=== PATIENT | female | born 1955 | race Caucasian/White ===

== ENCOUNTER 2017-03-23 19:18 | Observation (INO) ==
[2017-03-23 20:33] LABS: Bilirubin,Urine Negative (Negative); Blood,Urine Negative (Negative); Clarity,Urine Clear (Clear); Color,Urine Yellow (Yellow); Glucose,Urine (UA) >=1000 mg/dL (Normal); Ketones,Urine 80 mg/dL (Negative); Leukocyte Esterase,Urine Negative (Negative); Nitrite,Urine Positive (Negative); Protein,Urine Negative (Neg-Trace); Specific Gravity,Urine > 1.030 (1.010-1.025); Urobilinogen,Urine Normal (Normal)
[2017-03-23 20:34] LABS: Bacteria,Urine Many per hpf (None-Few); Hyaline Casts,Urine None Seen per lpf (None-Few); RBC,Urine 0-3 per hpf (0-3); Squamous Epithelial Cell,Urine Few per lpf (None-Few); WBC,Urine 15-30 per hpf (0-3)
--- NOTE | 2017-03-23 21:02 | Emergency Department Note ---
START Narrative - START START: I examined this patient and my medical decision-making was reviewed with the [employer] TECHNICIAN/PA/Advanced Practice Nurse/Resident Physician. I agree with the documented findings, disposition and treatment plan as described except to the extent set forth below. The patient presents with abdominal pain was gone for several months and is intermittent and mid abdomen without radiation and the pain is now worse. She is here with her [id number]. The patient was prescribed metformin today for a diagnosis of new onset diabetes and the prescription is at the pharmacy but she has not yet started taking the medication. Labs are ordered as well as a CT scan. Results pending. [id number]
[2017-03-23 21:03] LABS: Basophils # 0.1 K/mcL (0.0-0.2); Basophils % 0.4 %; Eosinophils % 0.3 %; Hematocrit 48.8 % (35.3-44.9); Hemoglobin 16.7 g/dL (11.5-15.4); Immature Granulocytes % 0.3 % (0-4); Immature Platelets 11.1 % (1.1-6.1); Lymphocytes # 1.7 K/mcL (0.6-4.6); Lymphocytes % 14.8 %; Mean Corpuscular HGB Conc 34.2 g/dL (31.6-35.5); Mean Corpuscular Hemoglobin 29.3 pg (28.0-33.3); Mean Corpuscular Volume 85.6 fL (83.0-100.0); Monocytes # 0.7 K/mcL (0.0-1.3); Monocytes % 5.9 %; Neutrophils # 8.8 K/mcL (1.6-8.9); Platelet Count 309 K/mcL (140-400); Red Cell Distribution Width 12.4 % (11.5-14.5); Segmented Neutrophils % 78.3 %
[2017-03-23 21:18] LABS: Alanine Aminotransferase 23 Units/L (0-55); Albumin 4.2 g/dL (3.5-5.0); Albumin/Globulin Ratio 1.1 (1.1-2.2); Alkaline Phosphatase 132 Units/L (38-126); Aspartate Amino Transferase 20 Units/L (5-34); BUN/Creatinine Ratio 9 (6-26); Bilirubin,Direct 0.2 mg/dL (0.0-0.5); Bilirubin,Indirect 0.6 mg/dL (0.0-1.2); Bilirubin,Total 0.8 mg/dL (0.2-1.2); Blood Urea Nitrogen 9 mg/dL (7-20); Calcium 10.2 mg/dL (8.6-10.8); Carbon Dioxide 25 mEq/L (19-29); Chloride 93 mEq/L (98-109); Globulin 3.7 g/dL (2.4-3.5); Glucose 447 mg/dL (70-99); Lipase 10 Units/L (8-78); Osmolality,Calculated 298 (280-300); Potassium 3.7 mEq/L (3.5-4.5); Sodium 135 mEq/L (136-145); Total Protein 7.9 g/dL (6.0-8.3); eGFR For African Americans > 60 (> 60); eGFR For Non-African Americans 53 (> 60)
[2017-03-23] MEDS ORDERED: 0.9 % Sodium Chloride 1,000 ML IVC ONE ×2 (21:21→22:10)
--- NOTE | 2017-03-23 21:57 | Emergency Department Note ---
Disposition Clinical Impression: Abnormal EKG, Cystitis Abdominal pain Qualifiers: Abdominal location: lower abdomen, unspecified Qualified Code(s): R10.30 - Lower abdominal pain, unspecified Hyperglycemia due to type 2 diabetes mellitus Qualifiers: Diabetes mellitus [facility] insulin use: without [facility] use Qualified Code(s ): E11.65 - Type 2 diabetes mellitus with hyperglycemia Disposition: Admitted As Inpatient Condition: Good Time of Disposition: 23:44 Abdominal Pain HPI - General Chief Complaint: ED Abdominal Pain Stated Complaint: abd pain Time Seen by Provider: 03/23/17 20:40 Source: patient Mode of arrival: ambulatory Limitations: no limitations Nursing Notes Reviewed: Yes Vital Signs Reviewed: Yes - History of Present Illness HPI Narrative: 61-year-old female presents to the ED with one-week history of suprapubic/ periumbilical abdominal pain. Pain is described as sharp and moderate in severity. Pain is non-migratory and non-radiating. No known provoking or palliative factors; has not taken anything specifically for this pain. No care sought for this specific pain prior to current ED visit. Patient does have some associated dysuria and malodorous urine. Denies flank pain, fevers, chills , nausea, vomiting, diarrhea, or hematuria. Patient's daughter present in exam room and states patient is at baseline mentation. Patient mentions she saw her PCP this afternoon and was given rx for metformin for new diagnosis of diabetes. Patient has not taken any metformin as of yet. ROS: not having any headache, chest pain, palpitations, SOA, post-prandial pain , or leg edema. Pain Scale: 9 - Related Data Home Medications Medication Instructions Recorded Confirmed ALPRAZolam [Xanax 1 MG Tablet] 1 - 2 mg PO BID PRN 03/31/16 03/31/16 Baclofen [Lioresal] 10 mg PO BID 03/31/16 03/31/16 Diclofenac Sodium [Voltaren] 1 appl TP QID PRN 03/31/16 03/31/16 Etodolac 300 mg PO Q12H 03/31/16 03/31/16 Furosemide [Lasix] 40 mg PO DAILY 03/31/16 03/31/16 Losartan Potassium [Cozaar] 50 mg PO DAILY 03/31/16 03/31/16 Meloxicam [Mobic] 15 mg PO DAILY 03/31/16 03/31/16 Nystatin POWDER [Nystop] 1 appl TP 2-3XD 03/31/16 03/31/16 Omeprazole [PriLOSEC] 20 mg PO DAILY 03/31/16 03/31/16 Promethazine [Phenergan] 25 mg PO Q6HR PRN 03/31/16 03/31/16 hydroCHLOROthiazide 25 mg PO DAILY 03/31/16 03/31/16 [Hydrochlorothiazide] Alogliptin Benzoate [Nesina] 25 mg PO DAILY 03/23/17 03/23/17 Ammonium Lactate [Tracy-Hydrolac] 1 appl TP BID 03/23/17 03/23/17 Loratadine [Claritin] 10 mg PO DAILY 03/23/17 03/23/17 Metformin HCl [Metformin HCl ER] 500 mg PO QPM 03/23/17 03/23/17 Mometasone Furoate [Elocon] 1 appl TP DAILY 03/23/17 03/23/17 Oxycodone HCl/Acetaminophen 1 each PO Q6H PRN 03/23/17 03/23/17 [Percocet 5-325 mg Tablet] Simvastatin [Zocor] 40 mg PO HS 03/23/17 03/23/17 Allergies Allergy/AdvReac Type Severity Reaction Status Date / Time No Known Allergies Allergy Verified 03/31/16 09:44 Review of Systems: As Per HPI Eyes: Denies: vision change ENT ED: Denies: dysphagia Cardiovascular: Denies: syncope Gastrointestinal: Denies: melena, hematochezia Genitourinary: Denies: discharge Neurological: Denies: weakness, numbness, paresthesias, confusion, vertigo Endocrine: Denies: fatigue Abdominal Pain PMH - Past Medical History Medical history: Reports: diabetes, other (New diagnosis of diabetes) Female Surgical History: Reports: orthopedic, other Psychiatric history: Reports: no psych history - Social History Smoking status: Never smoker Alcohol use: Reports: none Drug use: Reports: none Physical Exam - General Limitations: no limitations General appearance: alert, in no apparent distress - Head Head exam: normocephalic - Eye Eye exam: Present: PERRL, EOMI. Absent: scleral icterus, conjunctival injection - ENT ENT exam: mucous membranes moist - Respiratory Respiratory exam: Present: normal lung sounds bilaterally. Absent: wheezes - Cardiovascular Cardiovascular exam: Present: regular rate. Absent: systolic murmur, diastolic murmur, +S3, +S4 - Abdominal Exam Abdominal exam: Present: tenderness (suprapubic/periumbilical). Absent: distention, guarding, rebound, rigidity - Extremities Exam Extremities exam: Absent: pedal edema - Neurological Exam Neurological exam: Present: alert, oriented X3 - Psychiatric Psychiatric exam: Present: normal affect - Skin Skin exam: Present: warm, dry, intact. Absent: cyanosis, diaphoresis, pallor Course Course Narrative: Ordered CBC, CMP, Troponin, VBG, UA, EKG, and CT Abd/Pelv. EKG showed ST segment depressions in leads V3-V6 that were new compared to previous EKG. Initial troponin negative. UA positive for UTI. Given IV Rocephin 1g. NS Bolus 1000mL x2 given. 40meQ KCl PO given for borderline K+. Glucose elevated at 447. AG = 19. VBG negative for acidosis. Vital Signs Temperature 98.1 F 03/23/17 19:44 Pulse Rate 115 03/23/17 19:44 Respiratory Rate 18 03/23/17 19:44 Blood Pressure 143/87 03/23/17 19:44 O2 Sat by Pulse Oximetry 98 03/23/17 19:44 Temperature 98.1 F 03/23/17 19:44 Pulse Rate 71 03/23/17 23:17 Respiratory Rate 16 03/23/17 23:17 Blood Pressure 129/89 03/23/17 23:17 O2 Sat by Pulse Oximetry 95 03/23/17 23:17 Oxygen Delivery Oxygen Delivery Room Air Abdominal Pain - MDM Narrative Medical decision making narrative: Patient is a newly diagnosed diabetic with elevated glucose and an anion gap. Patient also has a UTI as well as concerning EKG findings. I feel that patient would benefit from admission for ACS rule out as well as continued hydration and glucose monitoring. Discussed patient with hospitalist (Dr. Coon) at 2310; accepts patient admission for treatment of UTI and r/o ACS. - Lab Data Lab results reviewed: Yes I reviewed the patient's lab results. Lab results narrative: Laboratory Last Values WBC 11.2 K/mcL (4.3-11.1) H 03/23/17 20:55 RBC 5.70 M/mcL (3.82-4.97) H 03/23/17 20:55 Hgb 16.7 g/dL (11.5-15.4) H 03/23/17 20:55 Hct 48.8 % (35.3-44.9) H 03/23/17 20:55 MCV 85.6 fL (83.0-100.0) 03/23/17 20:55 MCH 29.3 pg (28.0-33.3) 03/23/17 20:55 MCHC 34.2 g/dL (31.6-35.5) 03/23/17 20:55 RDW 12.4 % (11.5-14.5) 03/23/17 20:55 Plt Count 309 K/mcL (140-400) 03/23/17 20:55 MPV 12.0 fL (9.4-12.4) 03/23/17 20:55 Immature Gran % 0.3 % (0-4) 03/23/17 20:55 Seg Neutrophils % 78.3 % 03/23/17 20:55 Lymphocytes % 14.8 % 03/23/17 20:55 Monocytes % 5.9 % 03/23/17 20:55 Eosinophils % 0.3 % 03/23/17 20:55 Basophils % 0.4 % 03/23/17 20:55 Neutrophils # 8.8 K/mcL (1.6-8.9) 03/23/17 20:55 Lymphocytes # 1.7 K/mcL (0.6-4.6) 03/23/17 20:55 Monocytes # 0.7 K/mcL (0.0-1.3) 03/23/17 20:55 Eosinophils # 0.0 K/mcL (0.0-0.6) 03/23/17 20:55 Basophils # 0.1 K/mcL (0.0-0.2) 03/23/17 20:55 Immature Plt Fraction 11.1 % (1.1-6.1) H 03/23/17 20:55 Sodium 135 mEq/L (136-145) L 03/23/17 20:55 Potassium 3.7 mEq/L (3.5-4.5) 03/23/17 20:55 Chloride 93 mEq/L (98-109) L 03/23/17 20:55 Carbon Dioxide 25 mEq/L (19-29) 03/23/17 20:55 BUN 9 mg/dL (7-20) 03/23/17 20:55 Creatinine 1.05 mg/dL (0.57-1.11) 03/23/17 20:55 Est GFR ( Amer) > 60 (> 60) 03/23/17 20:55 Est GFR (Non-Af Amer) 53 (> 60) L 03/23/17 20:55 BUN/Creatinine Ratio 9 (6-26) 03/23/17 20:55 Glucose 447 mg/dL (70-99) H 03/23/17 20:55 Calculated Osmolality 298 (280-300) 03/23/17 20:55 Calcium 10.2 mg/dL (8.6-10.8) 03/23/17 20:55 Total Bilirubin 0.8 mg/dL (0.2-1.2) 03/23/17 20:55 Direct Bilirubin 0.2 mg/dL (0.0-0.5) 03/23/17 20:55 Indirect Bilirubin 0.6 mg/dL (0.0-1.2) 03/23/17 20:55 AST 20 Units/L (5-34) 03/23/17 20:55 ALT 23 Units/L (0-55) 03/23/17 20:55 Alkaline Phosphatase 132 Units/L (38-126) H 03/23/17 20:55 Troponin I 0.00 ng/mL (0-0.03) 03/23/17 20:55 Serum Total Protein 7.9 g/dL (6.0-8.3) 03/23/17 20:55 Albumin 4.2 g/dL (3.5-5.0) 03/23/17 20:55 Globulin 3.7 g/dL (2.4-3.5) H 03/23/17 20:55 Albumin/Globulin Ratio 1.1 (1.1-2.2) 03/23/17 20: Lipase 10 Units/L (8-78) 03/23/17 20:55 Urine Color Yellow (Yellow) 03/23/17 20:10 Urine Clarity Clear (Clear) 03/23/17 20:10 Urine pH 6.0 pH Units (5.0-8.0) 03/23/17 20:10 Ur Specific [place] > 1.030 (1.010-1.025) H 03/23/17 20:10 Urine Protein Negative mg/dL (Neg-Trace) 03/23/17 20:10 Urine Glucose (UA) >=1000 mg/dL (Normal) H 03/23/17 20:10 Urine Ketones 80 mg/dL (Negative) H 03/23/17 20:10 Urine Blood Negative (Negative) 03/23/17 20:10 Urine Nitrite Positive (Negative) A 03/23/17 20:10 Urine Bilirubin Negative (Negative) 03/23/17 20:10 Urine Urobilinogen Normal mg/dL (Normal) 03/23/17 20:10 Ur Leukocyte Esterase Negative (Negative) 03/23/17 20:10 Urine Microscopic RBC 0-3 per hpf (0-3) 03/23/17 20:10 Urine Microscopic WBC 15-30 per hpf (0-3) H 03/23/17 20:10 Ur Squamous Epith Cells Few per lpf (None-Few) 03/23/17 20:10 Urine Bacteria Many per hpf (None-Few) H 03/23/17 20:10 Hyaline Casts None Seen per lpf (None-Few) 03/23/17 20:10 Ur Culture Indicated? YES (NO) A 03/23/17 20:10 Laboratory Last Values WBC 11.2 K/mcL (4.3-11.1) H 03/23/17 20:55 RBC 5.70 M/mcL (3.82-4.97) H 03/23/17 20:55 Hgb 16.7 g/dL (11.5-15.4) H 03/23/17 20:55 Hct 48.8 % (35.3-44.9) H 03/23/17 20:55 MCV 85.6 fL (83.0-100.0) 03/23/17 20:55 MCH 29.3 pg (28.0-33.3) 03/23/17 20:55 MCHC 34.2 g/dL (31.6-35.5) 03/23/17 20:55 RDW 12.4 % (11.5-14.5) 03/23/17 20:55 Plt Count 309 K/mcL (140-400) 03/23/17 20:55 MPV 12.0 fL (9.4-12.4) 03/23/17 20:55 Immature Gran % 0.3 % (0-4) 03/23/17 20:55 Seg Neutrophils % 78.3 % 03/23/17 20:55 Lymphocytes % 14.8 % 03/23/17 20:55 Monocytes % 5.9 % 03/23/17 20:55 Eosinophils % 0.3 % 03/23/17 20:55 Basophils % 0.4 % 03/23/17 20:55 Neutrophils # 8.8 K/mcL (1.6-8.9) 03/23/17 20:55 Lymphocytes # 1.7 K/mcL (0.6-4.6) 03/23/17 20:55 Monocytes # 0.7 K/mcL (0.0-1.3) 03/23/17 20:55 Eosinophils # 0.0 K/mcL (0.0-0.6) 03/23/17 20:55 Basophils # 0.1 K/mcL (0.0-0.2) 03/23/17 20:55 Immature Plt Fraction 11.1 % (1.1-6.1) H 03/23/17 20:55 VBG pH 7.43 pH Units (7.32-7.42) H 03/23/17 22:35 VBG pCO2 48 mmHg (41-51) 03/23/17 22:35 VBG pO2 40 mmHg (25-50) 03/23/17 22:35 VBG HCO3 32 mEq/L (21-27) H 03/23/17 22:35 Sodium 135 mEq/L (136-145) L 03/23/17 20:55 Potassium 3.7 mEq/L (3.5-4.5) 03/23/17 20:55 Chloride 93 mEq/L (98-109) L 03/23/17 20:55 Carbon Dioxide 25 mEq/L (19-29) 03/23/17 20:55 BUN 9 mg/dL (7-20) 03/23/17 20:55 Creatinine 1.05 mg/dL (0.57-1.11) 03/23/17 20:55 Est GFR ( Amer) > 60 (> 60) 03/23/17 20:55 Est GFR (Non-Af Amer) 53 (> 60) L 03/23/17 20:55 BUN/Creatinine Ratio 9 (6-26) 03/23/17 20:55 Glucose 447 mg/dL (70-99) H 03/23/17 20:55 Calculated Osmolality 298 (280-300) 03/23/17 20:55 Lactic Acid 1.5 mmol/L (0.5-2.2) 03/23/17 22:21 Calcium 10.2 mg/dL (8.6-10.8) 03/23/17 20:55 Total Bilirubin 0.8 mg/dL (0.2-1.2) 03/23/17 20:55 Direct Bilirubin 0.2 mg/dL (0.0-0.5) 03/23/17 20: Indirect Bilirubin 0.6 mg/dL (0.0-1.2) 03/23/17 20:55 AST 20 Units/L (5-34) 03/23/17 20:55 ALT 23 Units/L (0-55) 03/23/17 20:55 Alkaline Phosphatase 132 Units/L (38-126) H 03/23/17 20:55 Troponin I 0.00 ng/mL (0-0.03) 03/23/17 20:55 Serum Total Protein 7.9 g/dL (6.0-8.3) 03/23/17 20:55 Albumin 4.2 g/dL (3.5-5.0) 03/23/17 20:55 Globulin 3.7 g/dL (2.4-3.5) H 03/23/17 20:55 Albumin/Globulin Ratio 1.1 (1.1-2.2) 03/23/17 20: Lipase 10 Units/L (8-78) 03/23/17 20:55 Urine Color Yellow (Yellow) 03/23/17 20:10 Urine Clarity Clear (Clear) 03/23/17 20:10 Urine pH 6.0 pH Units (5.0-8.0) 03/23/17 20:10 Ur Specific [place] > 1.030 (1.010-1.025) H 03/23/17 20:10 Urine Protein Negative mg/dL (Neg-Trace) 03/23/17 20:10 Urine Glucose (UA) >=1000 mg/dL (Normal) H 03/23/17 20:10 Urine Ketones 80 mg/dL (Negative) H 03/23/17 20:10 Urine Blood Negative (Negative) 03/23/17 20:10 Urine Nitrite Positive (Negative) A 03/23/17 20:10 Urine Bilirubin Negative (Negative) 03/23/17 20:10 Urine Urobilinogen Normal mg/dL (Normal) 03/23/17 20:10 Ur Leukocyte Esterase Negative (Negative) 03/23/17 20:10 Urine Microscopic RBC 0-3 per hpf (0-3) 03/23/17 20:10 Urine Microscopic WBC 15-30 per hpf (0-3) H 03/23/17 20:10 Ur Squamous Epith Cells Few per lpf (None-Few) 03/23/17 20:10 Urine Bacteria Many per hpf (None-Few) H 03/23/17 20:10 Hyaline Casts None Seen per lpf (None-Few) 03/23/17 20:10 Ur Culture Indicated? YES (NO) A 03/23/17 20:10 Laboratory Last Values WBC 11.2 K/mcL (4.3-11.1) H 03/23/17 20:55 RBC 5.70 M/mcL (3.82-4.97) H 03/23/17 20:55 Hgb 16.7 g/dL (11.5-15.4) H 03/23/17 20:55 Hct 48.8 % (35.3-44.9) H 03/23/17 20:55 MCV 85.6 fL (83.0-100.0) 03/23/17 20:55 MCH 29.3 pg (28.0-33.3) 03/23/17 20:55 MCHC 34.2 g/dL (31.6-35.5) 03/23/17 20:55 RDW 12.4 % (11.5-14.5) 03/23/17 20:55 Plt Count 309 K/mcL (140-400) 03/23/17 20:55 MPV 12.0 fL (9.4-12.4) 03/23/17 20:55 Immature Gran % 0.3 % (0-4) 03/23/17 20:55 Seg Neutrophils % 78.3 % 03/23/17 20:55 Lymphocytes % 14.8 % 03/23/17 20:55 Monocytes % 5.9 % 03/23/17 20:55 Eosinophils % 0.3 % 03/23/17 20:55 Basophils % 0.4 % 03/23/17 20:55 Neutrophils # 8.8 K/mcL (1.6-8.9) 03/23/17 20:55 Lymphocytes # 1.7 K/mcL (0.6-4.6) 03/23/17 20:55 Monocytes # 0.7 K/mcL (0.0-1.3) 03/23/17 20:55 Eosinophils # 0.0 K/mcL (0.0-0.6) 03/23/17 20:55 Basophils # 0.1 K/mcL (0.0-0.2) 03/23/17 20:55 Immature Plt Fraction 11.1 % (1.1-6.1) H 03/23/17 20:55 VBG pH 7.43 pH Units (7.32-7.42) H 03/23/17 22:35 VBG pCO2 48 mmHg (41-51) 03/23/17 22:35 VBG pO2 40 mmHg (25-50) 03/23/17 22:35 VBG HCO3 32 mEq/L (21-27) H 03/23/17 22:35 Sodium 135 mEq/L (136-145) L 03/23/17 20:55 Potassium 3.7 mEq/L (3.5-4.5) 03/23/17 20:55 Chloride 93 mEq/L (98-109) L 03/23/17 20:55 Carbon Dioxide 25 mEq/L (19-29) 03/23/17 20:55 BUN 9 mg/dL (7-20) 03/23/17 20:55 Creatinine 1.05 mg/dL (0.57-1.11) 03/23/17 20:55 Est GFR ( Amer) > 60 (> 60) 03/23/17 20:55 Est GFR (Non-Af Amer) 53 (> 60) L 03/23/17 20:55 BUN/Creatinine Ratio 9 (6-26) 03/23/17 20:55 Glucose 447 mg/dL (70-99) H 03/23/17 20:55 Calculated Osmolality 298 (280-300) 03/23/17 20:55 Lactic Acid 1.5 mmol/L (0.5-2.2) 03/23/17 22:21 Calcium 10.2 mg/dL (8.6-10.8) 03/23/17 20:55 Total Bilirubin 0.8 mg/dL (0.2-1.2) 03/23/17 20:55 Direct Bilirubin 0.2 mg/dL (0.0-0.5) 03/23/17 20:55 Indirect Bilirubin 0.6 mg/dL (0.0-1.2) 03/23/17 20:55 AST 20 Units/L (5-34) 03/23/17 20:55 ALT 23 Units/L (0-55) 03/23/17 20:55 Alkaline Phosphatase 132 Units/L (38-126) H 03/23/17 20:55 Troponin I 0.00 ng/mL (0-0.03) 03/23/17 20:55 Serum Total Protein 7.9 g/dL (6.0-8.3) 03/23/17 20:55 Albumin 4.2 g/dL (3.5-5.0) 03/23/17 20:55 Globulin 3.7 g/dL (2.4-3.5) H 03/23/17 20:55 Albumin/Globulin Ratio 1.1 (1.1-2.2) 03/23/17 20:55 Lipase 10 Units/L (8-78) 03/23/17 20:55 Urine Color Yellow (Yellow) 03/23/17 20:10 Urine Clarity Clear (Clear) 03/23/17 20:10 Urine pH 6.0 pH Units (5.0-8.0) 03/23/17 20:10 Ur Specific [place] > 1.030 (1.010-1.025) H 03/23/17 20:10 Urine Protein Negative mg/dL (Neg-Trace) 03/23/17 20:10 Urine Glucose (UA) >=1000 mg/dL (Normal) H 03/23/17 20:10 Urine Ketones 80 mg/dL (Negative) H 03/23/17 20:10 Urine Blood Negative (Negative) 03/23/17 20:10 Urine Nitrite Positive (Negative) A 03/23/17 20:10 Urine Bilirubin Negative (Negative) 03/23/17 20:10 Urine Urobilinogen Normal mg/dL (Normal) 03/23/17 20:10 Ur Leukocyte Esterase Negative (Negative) 03/23/17 20:10 Urine Microscopic RBC 0-3 per hpf (0-3) 03/23/17 20:10 Urine Microscopic WBC 15-30 per hpf (0-3) H 03/23/17 20:10 Ur Squamous Epith Cells Few per lpf (None-Few) 03/23/17 20:10 Urine Bacteria Many per hpf (None-Few) H 03/23/17 20:10 Hyaline Casts None Seen per lpf (None-Few) 03/23/17 20:10 Ur Culture Indicated? YES (NO) A 03/23/17 20:10 Result diagrams: 03/23/17 20:55 03/23/17 20:55 Lab Results 03/23/17 03/23/17 03/23/17 Range/Units 20:10 20:55 20:55 WBC 11.2 H (4.3-11.1) K/mcL RBC 5.70 H (3.82-4.97) M/mcL Hgb 16.7 H (11.5-15.4) g/dL Hct 48.8 H (35.3-44.9) % MCV 85.6 (83.0-100.0) fL MCH 29.3 (28.0-33.3) pg MCHC 34.2 (31.6-35.5) g/dL RDW 12.4 (11.5-14.5) % Plt Count 309 (140-400) K/mcL MPV 12.0 (9.4-12.4) fL Immature Gran % 0.3 (0-4) % Seg Neutrophils % 78.3 % Lymphocytes % 14.8 % Monocytes % 5.9 % Eosinophils % 0.3 % Basophils % 0.4 % Neutrophils # 8.8 (1.6-8.9) K/mcL Lymphocytes # 1.7 (0.6-4.6) K/mcL Monocytes # 0.7 (0.0-1.3) K/mcL Eosinophils # 0.0 (0.0-0.6) K/mcL Basophils # 0.1 (0.0-0.2) K/mcL Immature Plt Fraction 11.1 H (1.1-6.1) % VBG pH (7.32-7.42) pH Units VBG pCO2 (41-51) mmHg VBG pO2 (25-50) mmHg VBG HCO3 (21-27) mEq/L Sodium 135 L (136-145) mEq/L Potassium 3.7 (3.5-4.5) mEq/L Chloride 93 L (98-109) mEq/L Carbon Dioxide 25 (19-29) mEq/L BUN 9 (7-20) mg/dL Creatinine 1.05 (0.57-1.11) mg/dL Est GFR ( Amer) > 60 (> 60) Est GFR (Non-Af Amer) 53 L (> 60) BUN/Creatinine Ratio 9 (6-26) Glucose 447 H (70-99) mg/dL Calculated Osmolality 298 (280-300) Lactic Acid (0.5-2.2) mmol/L Calcium 10.2 (8.6-10.8) mg/dL Total Bilirubin 0.8 (0.2-1.2) mg/dL Direct Bilirubin 0.2 (0.0-0.5) mg/dL Indirect Bilirubin 0.6 (0.0-1.2) mg/dL AST 20 (5-34) Units/L ALT 23 (0-55) Units/L Alkaline Phosphatase 132 H (38-126) Units/L Troponin I (0-0.03) ng/mL Serum Total Protein 7.9 (6.0-8.3) g/dL Albumin 4.2 (3.5-5.0) g/dL Globulin 3.7 H (2.4-3.5) g/dL Albumin/Globulin Ratio 1.1 (1.1-2.2) Lipase 10 (8-78) Units/L Urine Color Yellow (Yellow) Urine Clarity Clear (Clear) Urine pH 6.0 (5.0-8.0) pH Units Ur Specific [place] > 1.030 H (1.010-1.025) Urine Protein Negative (Neg-Trace) mg/dL Urine Glucose (UA) >=1000 H (Normal) mg/dL Urine Ketones 80 H (Negative) mg/dL Urine Blood Negative (Negative) Urine Nitrite Positive A (Negative) Urine Bilirubin Negative (Negative) Urine Urobilinogen Normal (Normal) mg/dL Ur Leukocyte Esterase Negative (Negative) Urine Microscopic RBC 0-3 (0-3) per hpf Urine Microscopic WBC 15-30 H (0-3) per hpf Ur Squamous Epith Cells Few (None-Few) per lpf Urine Bacteria Many H (None-Few) per hpf Hyaline Casts None Seen (None-Few) per lpf Ur Culture Indicated? YES A (NO) 03/23/17 03/23/17 03/23/17 Range/Units 20:55 22:21 22:35 WBC (4.3-11.1) K/mcL RBC (3.82-4.97) M/mcL Hgb (11.5-15.4) g/dL Hct (35.3-44.9) % MCV (83.0-100.0) fL MCH (28.0-33.3) pg MCHC (31.6-35.5) g/dL RDW (11.5-14.5) % Plt Count (140-400) K/mcL MPV (9.4-12.4) fL Immature Gran % (0-4) % Seg Neutrophils % % Lymphocytes % % Monocytes % % Eosinophils % % Basophils % % Neutrophils # (1.6-8.9) K/mcL Lymphocytes # (0.6-4.6) K/mcL Monocytes # (0.0-1.3) K/mcL Eosinophils # (0.0-0.6) K/mcL Basophils # (0.0-0.2) K/mcL Immature Plt Fraction (1.1-6.1) % VBG pH 7.43 H (7.32-7.42) pH Units VBG pCO2 48 (41-51) mmHg VBG pO2 40 (25-50) mmHg VBG HCO3 32 H (21-27) mEq/L Sodium (136-145) mEq/L Potassium (3.5-4.5) mEq/L Chloride (98-109) mEq/L Carbon Dioxide (19-29) mEq/L BUN (7-20) mg/dL Creatinine (0.57-1.11) mg/dL Est GFR ( Amer) (> 60) Est GFR (Non-Af Amer) (> 60) BUN/Creatinine Ratio (6-26) Glucose (70-99) mg/dL Calculated Osmolality (280-300) Lactic Acid 1.5 (0.5-2.2) mmol/L Calcium (8.6-10.8) mg/dL Total Bilirubin (0.2-1.2) mg/dL Direct Bilirubin (0.0-0.5) mg/dL Indirect Bilirubin (0.0-1.2) mg/dL AST (5-34) Units/L ALT (0-55) Units/L Alkaline Phosphatase (38-126) Units/L Troponin I 0.00 (0-0.03) ng/mL Serum Total Protein (6.0-8.3) g/dL Albumin (3.5-5.0) g/dL Globulin (2.4-3.5) g/dL Albumin/Globulin Ratio (1.1-2.2) Lipase (8-78) Units/L Urine Color (Yellow) Urine Clarity (Clear) Urine pH (5.0-8.0) pH Units Ur Specific [place] (1.010-1.025) Urine Protein (Neg-Trace) mg/dL Urine Glucose (UA) (Normal) mg/dL Urine Ketones (Negative) mg/dL Urine Blood (Negative) Urine Nitrite (Negative) Urine Bilirubin (Negative) Urine Urobilinogen (Normal) mg/dL Ur Leukocyte Esterase (Negative) Urine Microscopic RBC (0-3) per hpf Urine Microscopic WBC (0-3) per hpf Ur Squamous Epith Cells (None-Few) per lpf Urine Bacteria (None-Few) per hpf Hyaline Casts (None-Few) per lpf Ur Culture Indicated? (NO) - Radiology Data Radiology results reviewed: Yes I reviewed the patient's radiology results. Abdomen/Pelvis CT 03/23/17 21:01 IMPRESSION: Imaging findings concerning for an enteritis with associated ileus versus early small bowel obstruction. Diverticulosis coli without diverticulitis. Left lower lobe pulmonary micronodule. Grade I/II spondylolisthesis of L3 on L4 secondary to bilateral spondylolysis. RECOMMENDATIONS: Fleischner Society guidelines for follow-up and management of pulmonary nodules: Nodule size less than or equal to 4 mm In a low-risk patient, no follow-up needed. In a high-risk patient, follow-up CT at 12 months; if unchanged, no further follow-up. Low risk patients include individuals with minimal or absent history of smoking and other known risk factors. High risk patients include individuals with a history of smoking or other known risk factors. Radiology 2005; [id number] D/ / Davion Gaming MD / Davion Gaming MD Interpreting Provider: Davion Gaming MD - EKG Data EKG attestation: Yes I reviewed and interpreted this EKG. EKG shows normal: sinus rhythm, axis, intervals, QRS complexes Rate: tachycardia ST segment depression in: v3, v4, v5, v6 When compared to previous EKG there are: changes noted Interpretation: nonspecific ST-T wave changes - Core Measures AMI Core Measures Followed: No Measure Exclusions: not indicated
[2017-03-23 22:37] LABS: VBG HCO3 32 mEq/L (21-27); VBG PCO2 48 mmHg (41-51); VBG PH 7.43 pH Units (7.32-7.42); VBG PO2 40 mmHg (25-50)
[2017-03-24] MEDS ORDERED: Acetaminophen 325 MG TABLET PO SCH
[2017-03-24] MEDS ORDERED: D5% in Water 1,000 ML IVC PRN (00:31)
[2017-03-24] MEDS ORDERED: *HR* Dextrose 50 % in Water (Syg) 50 ML SYRINGE IVP PRN (00:31)
[2017-03-24] MEDS ORDERED: Dextrose Gel 15 GM PO PRN ×2 (00:31)
[2017-03-24] MEDS ORDERED: Naloxone 0.4 MG/ML INJ IVP PRN (04:53)
[2017-03-24] MEDS ORDERED: *HR* Morphine 2 MG/ML SYRINGE IVP PRN (04:53)
[2017-03-24] MEDS ORDERED: Ondansetron 4 MG/2 ML VIAL IVP PRN (04:53)
[2017-03-24] MEDS ORDERED: *HR* OxyCODONE/APAP 5/325 TABLET PO PRN (04:58)
--- NOTE | 2017-03-24 05:04 | Internal Med History&Physical ---
Date of Encounter: 03/24/17 Time of Encounter: 05:00 Assessment and Plan (1) Cystitis Current visit: Yes Status: Acute 1. Culture urine. 2. Continue IV Rocephin and adjust antibiotics according to culture results. 3. IVF hydration. (2) Abdominal pain Current visit: Yes Status: Acute 1. Suspect due to UTI/cystitis. 2. Will order acute abdominal series Xray for this morning to evaluate for ileus vs SBO. 3. May need surgery consult if persists. However, on exam, her abdomen is soft and non-distended. Qualifiers: Abdominal location: lower abdomen, unspecified Qualified Code(s): R10.30 - Lower abdominal pain, unspecified (3) Hyperglycemia due to type 2 diabetes mellitus Current visit: Yes Status: Acute 1. Hold oral home meds. 2. Will place on SSI and monitor glucose closely. Qualifiers: Diabetes mellitus usp insulin use: without terminal worker use Qualified Code(s): E11.65 - Type 2 diabetes mellitus with hyperglycemia (4) Abnormal EKG Current visit: Yes Status: Acute 1. Will cycle troponins and EKG's. 2. Patient denies any chest pain or aginal equivalent. (5) DVT prophylaxis Current visit: Yes Status: Acute 1. Heparin SQ. Internal Medicine - H&P: HPI Chief complaint: abdominal pain, dysuria Admitted From: Emergency Dept Plans for Post Hospital Care: Home History of present illness: Ms. Vora is a 61 year old female who presents with complaints of suprapubic and lower abdominal pain, nausea, dysuria, urinary frequency, and some subtle flank pain. She came to the ER where she was found to have some mild dehydration and UTI findings. Additionally, she was hyperglycemic but did not have any evidence of DKA. She was then admitted to the hospitalist service for further workup and care. ER also did order a CT scan of the abdomen and pelvis which showed patient to have findings consistent with enteritis and ileus versus early small bowel infection. Upon my assessment of the patient, she complains of some suprapubic pain and dysuria. She denies any others significant abdominal pain. She has been passing flatus and has had some nausea. She denies any vomiting. She has been having some loose stool the last couple days as well. She denies any significant fevers, chills, or body aches. Appetite is diminished. Oral fluid intake is decreased as well. She was just diagnosed with diabetes and prescribed metformin yesterday. She has not started her metformin yet, however. Past Med Surg Social Fam HX - Past Medical History Attestation: Yes The following information was validated with the patient. Source: patient, old records reviewed Medical history: diabetes, hypertension Psychiatric history: no psych history - Past Surgical History Surgical History: orthopedic, other - Social History Smoking Status: Never smoker Smokeless Tobacco Status: No Alcohol use: none Drug use: none Current living situation: Home Activity Level: Uses cane/walker Recent Out of Country Travel Within the Last 8 Weeks: No - Family History Mother History Unknown: Yes Living Status: Father History Unknown: Yes Living Status: Internal Medicine - H&P: Meds ALPRAZolam [Xanax 1 MG Tablet] 1 mg PO BID 03/31/16 [History] Baclofen [Lioresal] 10 mg PO BID 03/31/16 [History] Diclofenac Sodium [Voltaren] 1 appl TP QID PRN 03/31/16 [History] Etodolac 300 mg PO Q12H 03/31/16 [History] Furosemide [Lasix] 40 mg PO DAILY 03/31/16 [History] Losartan Potassium [Cozaar] 50 mg PO DAILY 03/31/16 [History] Meloxicam [Mobic] 15 mg PO DAILY 03/31/16 [History] Nystatin POWDER [Nystop] 1 appl TP BID 03/31/16 [History] Omeprazole [PriLOSEC] 20 mg PO DAILY 03/31/16 [History] Promethazine [Phenergan] 25 mg PO Q6HR PRN 03/31/16 [History] hydroCHLOROthiazide [Hydrochlorothiazide] 25 mg PO DAILY 03/31/16 [History] Alogliptin Benzoate [Nesina] 25 mg PO DAILY 03/23/17 [History] Ammonium Lactate [Tracy-Hydrolac] 1 appl TP BID 03/23/17 [History] Loratadine [Claritin] 10 mg PO DAILY 03/23/17 [History] Metformin HCl [Metformin HCl ER] 500 mg PO QPM 03/23/17 [History] Mometasone Furoate [Elocon] 1 appl TP DAILY 03/23/17 [History] Oxycodone HCl/Acetaminophen [Percocet 5-325 mg Tablet] 1 each PO Q6H PRN [History] Simvastatin [Zocor] 40 mg PO HS 03/23/17 [History] 3 Allergy/AdvReac Type Severity Reaction Status Date / Time No Known Allergies Allergy Verified 03/31/16 09:44 - Constitutional Constitutional: fever(s), no chills, no night sweats - EENT Eyes: no blurry vision, no change in vision Ears: no ear pain, no tinnitus Nose, mouth and throat: no nasal congestion, no sinus pain, no sinus pressure, no sore throat - Cardiovascular Cardiovascular ROS IM: no chest pain, no dyspnea, no dyspnea on exertion, no edema - Respiratory Respiratory: no cough, no dyspnea, no hemoptysis - Gastrointestinal Gastrointestinal: abdominal pain, no diarrhea, no hematemesis, no hematochezia, no melena, no nausea, no vomiting - Genitourinary Genitourinary: dysuria, urinary frequency, no flank pain, no hematuria - Musculoskeletal Musculoskeletal ROS IM: atrophy - Integumentary Integumentary IM: no rash - Neurological Neurological ROS: no focal weakness, no frequent falls, no headache(s) - Psychiatric Psychiatric: no anxiety, no depression - Endocrine Endocrine IM: no polydipsia, no polyuria - Hematologic/Lymphatic Hematologic/Lymphatic: no easy bruising - Allergic/Immunologic Allergic/Immunologic: no GI upset with certain foods - Constitutional Vitals: Temp Pulse Resp BP Pulse Ox 97.6 F 115 18 109/63 95 03/24/17 03:49 03/24/17 03:49 03/24/17 03:49 03/24/17 03:49 03/24/17 03:49 General appearance: Present: A&O X 3, no acute distress Exam: appears dehydrated mildly - Head Head exam: Present: normal inspection - Eye Eye exam: Present: EOMI, PERRL. Absent: scleral icterus Pupils: Present: normal accommodation - ENT ENT exam: Present: mucous membranes dry, normal exam - Neck Neck exam general surgery: Present: full ROM, supple. Absent: tenderness - Respiratory Respiratory exam: Present: CTAB. Absent: rales, rhonchi, wheezes - Cardiovascular Cardiovascular exam: Present: RRR, +S1, +S2. Absent: diastolic murmur, systolic murmur - GI/Abdominal GI/Abdominal exam: Present: hypoactive bowel sounds, soft, tenderness (mild suprapubic), no peritoneal signs. Absent: guarding, hepatomegaly, mass, rebound , splenomegaly - Extremities Exam Extremities exam: Present: full ROM, warm. Absent: calf tenderness, pedal edema - Back Exam Back exam: Absent: CVA tenderness (L), CVA tenderness (R) - Neurological Exam Neurological exam: Present: alert, CN II-XII intact, oriented X3, no focal deficits - Psychiatric Psychiatric exam: Present: normal affect, normal mood - Skin Skin exam: Present: dry, warm. Absent: rash Internal Med - H&P Results - Labs CBC & Chem 7: 03/23/17 20:55 03/23/17 20:55 - EKG Data -: EKG Interpreted by Myself - EKG Data Prior EKG available for review: no EKG comments: 03/24/17 05:08 Sinus rhythm; depressed ST-T segments anteriorly consist with ischemia - Diagnostic Studies CT scan - abdomen Status: image reviewed by me (ileus vs SBO)
[2017-03-24] MEDS: 0.9 % Sodium Chloride w KCl 20 MEQ/1,000 ML MLS IVC SCH ×3 (05:58→21:42)
[2017-03-24] MEDS: *HR* Heparin 5,000 UNIT/ML VIAL SQ SCH ×3 (05:59→21:43)
[2017-03-24 08:34] LABS: Basophils # 0.1 K/mcL (0.0-0.2); Basophils % 0.6 %; Eosinophils # 0.2 K/mcL (0.0-0.6); Eosinophils % 1.7 %; Hematocrit 44.8 % (35.3-44.9); Immature Granulocytes % 0.2 % (0-4); Lymphocytes # 2.9 K/mcL (0.6-4.6); Lymphocytes % 31.7 %; Mean Corpuscular HGB Conc 33.5 g/dL (31.6-35.5); Mean Corpuscular Hemoglobin 29.2 pg (28.0-33.3); Mean Corpuscular Volume 87.2 fL (83.0-100.0); Mean Platelet Volume 11.7 fL (9.4-12.4); Monocytes # 0.7 K/mcL (0.0-1.3); Monocytes % 8.1 %; Neutrophils # 5.2 K/mcL (1.6-8.9); Platelet Count 308 K/mcL (140-400); Red Blood Count 5.14 M/mcL (3.82-4.97); Red Cell Distribution Width 12.4 % (11.5-14.5); Segmented Neutrophils % 57.7 %
[2017-03-24 08:45] LABS: Alanine Aminotransferase 20 Units/L (0-55); Albumin 3.5 g/dL (3.5-5.0); Albumin/Globulin Ratio 1.1 (1.1-2.2); Alkaline Phosphatase 108 Units/L (38-126); Aspartate Amino Transferase 17 Units/L (5-34); BUN/Creatinine Ratio 11 (6-26); Bilirubin,Total 0.6 mg/dL (0.2-1.2); Blood Urea Nitrogen 10 mg/dL (7-20); Carbon Dioxide 23 mEq/L (19-29); Chloride 103 mEq/L (98-109); Globulin 3.1 g/dL (2.4-3.5); Glucose 315 mg/dL (70-99); Osmolality,Calculated 297 (280-300); Potassium 3.1 mEq/L (3.5-4.5); Sodium 138 mEq/L (136-145); Total Protein 6.6 g/dL (6.0-8.3); eGFR For African Americans > 60 (> 60); eGFR For Non-African Americans > 60 (> 60)
[2017-03-24] MEDS: ALPRAZolam 1 MG TABLET PO SCH ×2 (08:52→21:40)
[2017-03-24] MEDS: Insulin LISPRO 300 UNITS/3 ML VIAL SQ SCH ×5 (08:53→21:44)
[2017-03-24] MEDS ORDERED: Potassium Chloride Elixir 20 MEQ/15 ML UDC PO ONE (14:18)
[2017-03-24] MEDS ORDERED: Acetaminophen 325 MG TABLET PO PRN (14:19)
--- NOTE | 2017-03-24 14:30 | Internal Med Progress Note ---
Date of Encounter: 03/24/17 Time of Encounter: 14:27 - Assessment and plan (1) Cystitis Current Visit: Yes Status: Acute Assessment and plan: Possible UTI Continue Rocephin day 2 Urine culture pending IV fluids (2) Abdominal pain Current Visit: Yes Status: Acute Assessment and plan: CT scan reported possible enteritis versus early small bowel obstruction The patient is asymptomatic at the moment, no NG tube required Advance diet Qualifiers: Abdominal location: lower abdomen, unspecified Qualified Code(s): R10.30 - Lower abdominal pain, unspecified (3) Hyperglycemia due to type 2 diabetes mellitus Current Visit: Yes Status: Acute Assessment and plan: Recently diagnosed Primary care physician started oral medications including metformin 1 A1c is more than 14.1 Start 5 units of Levemir at night, 3 units 3 times a day plus insulin sliding scale and adjust as needed Qualifiers: Diabetes mellitus intermediate card tender insulin use: without halfway use Qualified Code(s): E11.65 - Type 2 diabetes mellitus with hyperglycemia (4) Obesity Current Visit: Yes Status: Acute Qualifiers: Obesity type: due to excess calories Obesity classification: unspecified obesity classification Serious obesity comorbidity presence: without serious comorbidity Qualified Code(s): E66.09 - Other obesity due to excess calories - Subjective Interval history: Denies any nausea or vomiting, no abdominal pain, no diarrhea, no fevers, complaints of dysuria still - Constitutional Vitals: Temp Pulse Resp BP Pulse Ox 98.4 F 102 16 119/73 95 03/24/17 10:55 03/24/17 10:55 03/24/17 10:55 03/24/17 10:55 03/24/17 10:55 General appearance: Present: A&O X 3, morbidly obese, no acute distress - Head Head exam: Present: atraumatic, normocephalic - Eye Eye exam: Present: PERRL, conjuntiva pink, sclera anicteric Pupils: Present: PERRL - Neck Neck exam general surgery: Present: supple, trachea midline. Absent: lymphadenopathy - Respiratory Respiratory exam: Present: CTAB. Absent: accessory muscle use, rales, rhonchi, wheezes - Cardiovascular Cardiovascular exam: Present: RRR, +S1, +S2. Absent: diastolic murmur, gallop, rubs, systolic murmur - GI/Abdominal GI/Abdominal exam: Present: normal bowel sounds, soft, no peritoneal signs. Absent: distended, tenderness - Extremities Exam Extremities exam: Present: warm, radial pulses palpable and symmetrical. Absent : calf tenderness, cyanotic, pedal edema - Neurological Exam Neurological exam: Present: CN II-XII intact, oriented X3, no focal deficits. Absent: pronater drift, facial droop, speech deficit - Skin Skin exam: Present: dry, intact Internal Medicine: Result - Labs CBC & Chem 7: 03/24/17 08:25 03/24/17 08:25 Labs: Short CBC 03/24/17 Range/Units 08:25 WBC 9.1 (4.3-11.1) K/mcL Hgb 15.0 D (11.5-15.4) g/dL Hct 44.8 (35.3-44.9) % Plt Count 308 (140-400) K/mcL Neutrophils # 5.2 (1.6-8.9) K/mcL BMP 03/24/17 08:25 Sodium 138 Potassium 3.1 L Chloride 103 Carbon Dioxide 23 BUN 10 Creatinine 0.88 Glucose 315 H Calcium 9.0 Cardiac Enzymes 03/24/17 Range/Units 08:25 Troponin I 0.01 (0-0.03) ng/mL Liver Function 03/24/17 Range/Units 08:25 Total Bilirubin 0.6 (0.2-1.2) mg/dL AST 17 (5-34) Units/L ALT 20 (0-55) Units/L Alkaline Phosphatase 108 (38-126) Units/L Albumin 3.5 (3.5-5.0) g/dL - Impressions Impressions Chest/Abdomen X-ray 03/24/17 08:00 IMPRESSION: Bowel gas pattern is nonspecific and nonobstructive. Mild nonspecific distention of bowel within midabdomen. Given CT findings of possible obstruction, clinical correlation with symptoms is recommended. No radiographic evidence of intra-abdominal free air. No radiographic evidence of acute intrathoracic process. D/ / Arthur Van / Arthur Van Interpreting Provider: Arthur Van - VTE Documentation of Mechanical Device: Intermittent pneumatic compression device Consult Discharge Plan - Plan Referrals: Amish Myers Jr, MD [Primary Care Provider] -
--- NOTE | 2017-03-24 19:08 | Electrocardiograph Report ---
[address] [place], [place] [address] Test Date: 2017-03-23 Pat Name: [facility] Department: 104 Room: 2A Gender: F Heating Equipment Installer: : [id number] Requested By: Joel Bradley Order Number: [id number] Reading MD: Ruben Leon MD Measurements Intervals [place] Rate: 103 P: 45 UT: 144 QRS: 7 QRSD: 91 T: 26 QT: 362 QTc: 421 Interpretive Statements SINUS TACHYCARDIA BASELINE ARTIFACT Electronically Signed On 03-24-2017 19:07:15 EDT by Ruben Leon MD
[2017-03-24] MEDS ORDERED: Insulin DETEMIR 100 UNIT/ML X5UNITS SQ SCH (21:00)
[2017-03-25] MEDS: 0.9 % Sodium Chloride w KCl 20 MEQ/1,000 ML MLS IVC SCH (06:06)
[2017-03-25] MEDS: *HR* Heparin 5,000 UNIT/ML VIAL SQ SCH ×3 (06:06→21:11)
[2017-03-25 07:14] LABS: Hematocrit 41.8 % (35.3-44.9); Hemoglobin 13.9 g/dL (11.5-15.4); Immature Platelets 9.3 % (1.1-6.1); Mean Corpuscular HGB Conc 33.3 g/dL (31.6-35.5); Mean Corpuscular Hemoglobin 29.9 pg (28.0-33.3); Mean Corpuscular Volume 89.9 fL (83.0-100.0); Red Blood Count 4.65 M/mcL (3.82-4.97)
[2017-03-25 07:38] LABS: BUN/Creatinine Ratio 10 (6-26); Blood Urea Nitrogen 8 mg/dL (7-20); Calcium 8.1 mg/dL (8.6-10.8); Carbon Dioxide 23 mEq/L (19-29); Chloride 111 mEq/L (98-109); Glucose 203 mg/dL (70-99); Osmolality,Calculated 296 (280-300); Potassium 3.8 mEq/L (3.5-4.5); Sodium 141 mEq/L (136-145); eGFR For African Americans > 60 (> 60); eGFR For Non-African Americans > 60 (> 60)
[2017-03-25] MEDS: ALPRAZolam 1 MG TABLET PO SCH ×2 (08:18→21:11)
[2017-03-25] MEDS: Insulin LISPRO 300 UNITS/3 ML VIAL SQ SCH ×7 (08:19→21:09)
--- NOTE | 2017-03-25 10:11 | Internal Med Progress Note ---
Date of Encounter: 03/25/17 Time of Encounter: 10:09 - Assessment and plan (1) Cystitis Current Visit: Yes Status: Acute Assessment and plan: Possible UTI Continue Rocephin day 3 Urine culture , groing Escherichia coli, sensitivity pending IV fluids (2) Abdominal pain Current Visit: Yes Status: Acute Assessment and plan: CT scan reported possible enteritis versus early small bowel obstruction The patient is asymptomatic at the moment, no NG tube required Advanced diet Qualifiers: Abdominal location: lower abdomen, unspecified Qualified Code(s): R10.30 - Lower abdominal pain, unspecified (3) Hyperglycemia due to type 2 diabetes mellitus Current Visit: Yes Status: Acute Assessment and plan: Recently diagnosed Primary care physician started oral medications including metformin 1 A1c is more than 14.1 Increase Levemir up to 10 units at night, 5 units 3 times a day plus insulin sliding scale and adjust as needed Qualifiers: Diabetes mellitus parts counterman insulin use: without parts counterman use Qualified Code(s): E11.65 - Type 2 diabetes mellitus with hyperglycemia (4) Obesity Current Visit: Yes Status: Acute Qualifiers: Obesity type: due to excess calories Obesity classification: unspecified obesity classification Serious obesity comorbidity presence: without serious comorbidity Qualified Code(s): E66.09 - Other obesity due to excess calories - Subjective Interval history: Still complaining of dysuria slightly improved. Denies any nausea or vomiting, no abdominal pain, no diarrhea, no fevers - Constitutional Vitals: Temp Pulse Resp BP Pulse Ox 97.8 F 97 16 109/64 98 03/25/17 07:47 03/25/17 07:47 03/25/17 07:47 03/25/17 07:47 03/25/17 07:47 General appearance: Present: A&O X 3, morbidly obese, no acute distress - Head Head exam: Present: atraumatic, normocephalic - Eye Eye exam: Present: PERRL, conjuntiva pink, sclera anicteric Pupils: Present: PERRL - Neck Neck exam general surgery: Present: supple, trachea midline. Absent: lymphadenopathy - Respiratory Respiratory exam: Present: CTAB. Absent: accessory muscle use, rales, rhonchi, wheezes - Cardiovascular Cardiovascular exam: Present: RRR, +S1, +S2. Absent: diastolic murmur, gallop, rubs, systolic murmur - GI/Abdominal GI/Abdominal exam: Present: normal bowel sounds, soft, no peritoneal signs. Absent: distended, tenderness - Extremities Exam Extremities exam: Present: warm, radial pulses palpable and symmetrical. Absent : calf tenderness, cyanotic, pedal edema - Neurological Exam Neurological exam: Present: CN II-XII intact, oriented X3, no focal deficits. Absent: pronater drift, facial droop, speech deficit - Skin Skin exam: Present: dry, intact Internal Medicine: Result - Labs CBC & Chem 7: 03/25/17 07:02 03/25/17 07:02 Labs: Short CBC 03/25/17 Range/Units 07:02 WBC 5.6 (4.3-11.1) K/mcL Hgb 13.9 (11.5-15.4) g/dL Hct 41.8 (35.3-44.9) % Plt Count 244 (140-400) K/mcL BMP 03/25/17 07:02 Sodium 141 Potassium 3.8 Chloride 111 H Carbon Dioxide 23 BUN 8 Creatinine 0.78 Glucose 203 H Calcium 8.1 L Cardiac Enzymes 03/24/17 Range/Units 14:27 Troponin I 0.00 (0-0.03) ng/mL - VTE Documentation of Mechanical Device: Intermittent pneumatic compression device Consult Discharge Plan - Plan Referrals: Amish Myers Jr, MD [Primary Care Provider] -
[2017-03-25] MEDS: Insulin DETEMIR 100 UNIT/ML X5UNITS SQ SCH ×2 (11:33→21:12)
[2017-03-26] MEDS: *HR* Heparin 5,000 UNIT/ML VIAL SQ SCH (05:31)
[2017-03-26 06:30] LABS: Hematocrit 37.2 % (35.3-44.9); Mean Corpuscular HGB Conc 32.5 g/dL (31.6-35.5); Mean Corpuscular Hemoglobin 29.4 pg (28.0-33.3); Mean Corpuscular Volume 90.3 fL (83.0-100.0); Mean Platelet Volume 12.1 fL (9.4-12.4); Platelet Count 196 K/mcL (140-400); Red Blood Count 4.12 M/mcL (3.82-4.97); Red Cell Distribution Width 12.8 % (11.5-14.5)
[2017-03-26 06:36] LABS: Hemoglobin 12.1 g/dL (11.5-15.4)
[2017-03-26 06:42] LABS: BUN/Creatinine Ratio 20 (6-26); Blood Urea Nitrogen 15 mg/dL (7-20); Calcium 8.6 mg/dL (8.6-10.8); Carbon Dioxide 26 mEq/L (19-29); Chloride 109 mEq/L (98-109); Glucose 224 mg/dL (70-99); Osmolality,Calculated 296 (280-300); Potassium 3.9 mEq/L (3.5-4.5); Sodium 139 mEq/L (136-145); eGFR For African Americans > 60 (> 60); eGFR For Non-African Americans > 60 (> 60)
[2017-03-26] MEDS: ALPRAZolam 1 MG TABLET PO SCH (07:44)
[2017-03-26 07:49] VITALS: BP 125/81
[2017-03-26] MEDS: Insulin LISPRO 300 UNITS/3 ML VIAL SQ SCH ×4 (07:50→11:51)
--- NOTE | 2017-03-26 10:47 | Discharge Summary ---
Date of Encounter: 03/26/17 Time of Encounter: 10:32 - Discharge Diagnosis (1) Cystitis Priority: Primary Status: Acute Comments: UTI, growing Escherichia coli and Klebsiella sensitive to ceftriaxone (2) Abdominal pain Priority: Secondary Status: Acute Comments: CT scan reported possible enteritis versus early small bowel obstructio Currently asymptomatic Qualifiers: Abdominal location: lower abdomen, unspecified Qualified Code(s): R10.30 - Lower abdominal pain, unspecified (3) Hyperglycemia due to type 2 diabetes mellitus Priority: Secondary Status: Acute Comments: Hemoglobin A1c was more than 14.1 Qualifiers: Diabetes mellitus buttermilk drier operator insulin use: without buttermilk drier operator use Qualified Code(s): E11.65 - Type 2 diabetes mellitus with hyperglycemia (4) Obesity Priority: Secondary Status: Acute Qualifiers: Obesity type: due to excess calories Obesity classification: unspecified obesity classification Serious obesity comorbidity presence: without serious comorbidity Qualified Code(s): E66.09 - Other obesity due to excess calories - Discharge Medications Prescriptions: Cefdinir [Omnicef] 300 mg PO BID #4 capsule Insulin ASPART [Novolog Flexpen] 2 unit SQ TID #2 insuln.pen Insulin Glargine,Hum.rec.anlog [Lantus Solostar] 10 unit SQ QPM #2 insuln.pen Home Medications: ALPRAZolam [Xanax 1 MG Tablet] 1 mg PO BID 03/31/16 [History] Baclofen [Lioresal] 10 mg PO BID 03/31/16 [History] Diclofenac Sodium [Voltaren] 1 appl TP QID PRN 03/31/16 [History] Furosemide [Lasix] 40 mg PO DAILY 03/31/16 [History] Losartan Potassium [Cozaar] 50 mg PO DAILY 03/31/16 [History] Meloxicam [Mobic] 15 mg PO DAILY 03/31/16 [History] Nystatin POWDER [Nystop] 1 appl TP BID 03/31/16 [History] Omeprazole [PriLOSEC] 20 mg PO DAILY 03/31/16 [History] Promethazine [Phenergan] 25 mg PO Q6HR PRN 03/31/16 [History] hydroCHLOROthiazide [Hydrochlorothiazide] 25 mg PO DAILY 03/31/16 [History] Alogliptin Benzoate [Nesina] 25 mg PO DAILY 03/23/17 [History] Ammonium Lactate [Tracy-Hydrolac] 1 appl TP BID 03/23/17 [History] Loratadine [Claritin] 10 mg PO DAILY 03/23/17 [History] Metformin HCl [Metformin HCl ER] 500 mg PO QPM 03/23/17 [History] Mometasone Furoate [Elocon] 1 appl TP DAILY 03/23/17 [History] Oxycodone HCl/Acetaminophen [Percocet 5-325 mg Tablet] 1 each PO Q6H PRN [History] Simvastatin [Zocor] 40 mg PO HS 03/23/17 [History] Cefdinir [Omnicef] 300 mg PO BID #4 capsule 03/26/17 [Rx] Insulin ASPART [Novolog Flexpen] 2 unit SQ TID #2 insuln.pen 03/26/17 [Rx] Insulin Glargine,Hum.rec.anlog [Lantus Solostar] 10 unit SQ QPM #2 insuln.pen [Rx] Allergies/Adverse Reactions: 3 Allergy/AdvReac Type Severity Reaction Status Date / Time No Known Allergies Allergy Verified 03/31/16 09:44 Procedures/tests Complete & Pending: Procedures Performed prior 72 hours Category Date Time Status ECG 12 lead ECG [ECG] AM 0600 Y 03/24/17 06:00 Ordered Date of admission: 03/23/17 23:26 Primary care physician: Amish Myers Jr, MD Consults: 03/24/17 00:31 Consult to Railway Station Manager [CONS] Routine Comment: Reason for Consult: New diagnosis DM at PCP 03/24 - Patient Status Disposition: Home, Self-Care Condition: Good Overall status at discharge: patient is progressing back to baseline - Discharge Instructions Follow Up With: Amish Myers Jr, MD [Primary Care Provider] - (web request sent on 03/25/17) Additional Instructions: Follow-up with primary care physician within the next 7 days. Complete 2 more days of Cefdinir. Start Lantus 10 units at night, continue metformin. Continue NovoLog 3 times a day according to sliding scale Glucose sliding scale: 2 units if 150-199 4 units if 200-249 6 units if 250-299 8 units if 300-349 10 units if more than 350 - Diet and Activity Activity: increase activity as tolerated Diet: diabetic diet Hospital course: Ms. Vora is a 61 year old female diabetes recently diagnosed, hypertension who presented with complaints of suprapubic and lower abdominal pain, nausea, dysuria, urinary frequency, and some subtle flank pain. She came to the ER where she was found to have some mild dehydration and UTI findings. Additionally, she was hyperglycemic but did not have any evidence of DKA. She was then admitted to the hospitalist service for further workup and care. ER also did order a CT scan of the abdomen and pelvis which showed patient to have findings consistent with enteritis and ileus versus early small bowel infection. Potassium was 3.1 but was repleted. No NG tube was needed, the patient was passing gas and tolerated a diet properly. Was started on Rocephin and has completed 4 days Hemoglobin A1c was more than 14.1 and was recommended to start insulin. She is stable to be discharged - Time Spent with Patient Total time spent providing and/or coordinating discharge services: Greater than 30 minutes (40 min) - Constitutional Vitals: Temp Pulse Resp BP Pulse Ox 97.9 F 84 18 125/81 97 03/26/17 07:48 03/26/17 07:48 03/26/17 07:48 03/26/17 07:48 03/26/17 07:48 General appearance: Present: A&O X 3, morbidly obese, no acute distress - Head Head exam: Present: atraumatic, normocephalic - Eye Eye exam: Present: PERRL, conjuntiva pink, sclera anicteric Pupils: Present: PERRL - Neck Neck exam general surgery: Present: supple, trachea midline. Absent: lymphadenopathy - Respiratory Respiratory exam: Present: CTAB. Absent: accessory muscle use, rales, rhonchi, wheezes - Cardiovascular Cardiovascular exam: Present: RRR, +S1, +S2. Absent: diastolic murmur, gallop, rubs, systolic murmur - GI/Abdominal GI/Abdominal exam: Present: normal bowel sounds, soft, no peritoneal signs. Absent: distended, tenderness - Extremities Exam Extremities exam: Present: warm, radial pulses palpable and symmetrical. Absent : calf tenderness, cyanotic, pedal edema - Neurological Exam Neurological exam: Present: CN II-XII intact, oriented X3, no focal deficits. Absent: pronater drift, facial droop, speech deficit - Skin Skin exam: Present: dry, intact - VTE Documentation of Mechanical Device: Intermittent pneumatic compression device
== END 2017-03-26 12:15 | disposition home or self-care (01) ==
LOC: EMEROO 19:18 → 2ANU 19:18
PROVIDERS: ADMIT Family Medicine; ATTEND Internal Medicine